=== PATIENT | male | born 1965 | race Caucasian/White ===

== ENCOUNTER 2024-08-27 22:43 | Inpatient (IN) | payer OTHER, SELFPAY ==
[2024-08-27] VITALS (10 sets, daily range): BP systolic 125–171; BP diastolic 81–111; BMI 29.6
[2024-08-27] MEDS: LOW STRENGTH ASPIRIN 324 MG PO (20:29)
[2024-08-27 20:36] LABS: Hematocrit 43.5 % (39.0-52.0); Hemoglobin 15.1 g/dL (13.0-18.0); Mean Corp Hgb Conc. 34.7 g/dL (33.0-37.0); Mean Corpuscular Volume 86.7 fL (80.0-94.0); Nucleated Red Blood Cells % 0 % (-); Platelet Count 253 10^3/uL (130-400); Red Cell Dist. Width 12.7 % (11.5-14.5)
[2024-08-27] MEDS: HEPARIN 4000 UNITS IV (20:41)
[2024-08-27] MEDS: HEPARIN 25000 UNITS/250 ML IV (20:42)
[2024-08-27] MEDS: NITROSTAT (SUBLINGUAL) 0.4 MG SL (20:44)
[2024-08-27 20:50] LABS: APTT 29.7 Sec (23.4-35.0)
[2024-08-27 20:54] LABS: ALT (SGPT) 31 U/L (0-50); AST (SGOT) 34 U/L (17-59); Albumin 4.6 g/dl (3.5-5.0); Alkaline Phosphatase 69 U/L (38-126); Blood Urea Nitrogen 23 mg/dl (9-20); Calcium 9.5 mg/dl (8.4-10.2); Carbon Dioxide 29 mmol/L (22-30); Chloride 107 mmol/L (98-107); Estimated Creatinine Clearance 68 ml/min; Glucose 110 mg/dl (70-99); Potassium 3.8 mmol/L (3.5-5.1); Sodium 142 mmol/L (135-145); Total Protein 7.2 g/dl (6.3-8.2); eGFR > 60.00
--- NOTE | 2024-08-27 20:54 | ED.GENMED ---
History of Present Illness
General
Chief Complaint: Chest Pain
Source: patient
Exam Limitations: none
Time Seen by Provider: 08/27/24 20:19
History of Present Illness
History of Present Illness:
59-year-old male left-sided chest pressure x 2 hours. Started after vigorous work outside. Describing it as a pressure. No radiation to the back no shearing no arm pain. No shortness of breath. No history of same. No known cardiac issues
Past History
Past History
ED Past Medical History: HTN and Hypercholesterolemia
Review of Systems
Review of Systems
All Other Systems: Not applicable
Constitutional: Denies fever
Respiratory: Reports no symptoms
ABD/GI: Reports no symptoms; Denies bloody stools or black stools
Phy Exam
Physical Exam
Physical Exam:
GENERAL: Alert and oriented in no apparent distress
EYE: Orbits normal.
NECK: Supple, no significant adenopathy.
ENT: Pharynx without erythema
CARDIAC: Regular rate and rhythm without any obvious murmurs.
LUNGS: Clear breath sounds,normal
ABDOMEN: Soft, without focal tenderness or distention
NEUROLOGICAL: Alert and oriented , grossly non-focal
SKIN: Warm and dry, no rash or lesion, no discoloration, skin intact.
MUSCULOSKELETAL: No edema,no deformity.Good color
PSYCH: Normal and appropriate interaction.
Scores
Heart Score for Chest Pain Patients
STEMI patient?: No
History: Highly Suspicious
ECG: Significant ST-Depression
Age: >45 - <65 years
Risk Factors: 1 or 2 Risk Factors
Troponin: >/= 3 x Normal Limit
Heart Score for Chest Pain Patients: 8
Heart Score Risk: 72.7 % MACE over next 6 weeks
Course
Orders/Labs/Results
Orders:
Orders
08/27/24 20:05
Electrocardiogram (*1) Urgent
Reason for Study: Chest Pain
Cardiac Monitoring- Treatment ONCE
EKG- Treatment ONCE
IV Insert/Care/Rem.- Treatment PRN
O2 Therapy [RESP] Urgent
Titrate/Wean O2 to maintain O2 sat greater than (%): 90
Special Instructions: Maintain sats >/=90%
Pulse Ox/spot Check [RESP] Urgent
Quantity: 1
Special Instructions: ON ROOM AIR
08/27/24 20:26
CXR Port [CR Chest Portable - 1 View] Urgent
Comment:
Reason For Exam: cp
Reason Study Needs to be Portable: Patient Unstable
08/27/24 20:27
Electrocardiogram (*1) Stat
Reason for Study: Other
Other Reason for Exam: chest pain
Cardiac Monitoring- Treatment ONCE
EKG- Treatment ONCE
IV Insert/Care/Rem.- Treatment PRN
Aspirin Chewable [Low Strength Aspirin] 324 mg PO NOW STA
08/27/24 20:28
Complete Blood Count/With Diff Urgent
Comprehensive Metabolic Panel Urgent
Troponin I Urgent
08/27/24 20:31
Heparin 4,000 units IV NOW STA
Nursing to Place Non Medication Order As Directed
Physician Order: PTT 6 hours after initial start of Heparin infusion
Above order entered?: Yes
08/27/24 20:33
PTT Urgent
Comment: Obtain baseline before beginning heparin infusion if not already collected
08/27/24 20:38
Nitroglycerin 100 mg/250 ml [Nitroglycerin Premix] 100 mg in 250 ml IV NOW
Initial dose in mcg/min, then titrate:: 5
Titrate to keep:: Chest Pain Free
Titrate by mcg/min:: 5 mcg/min, may increase by 10 mcg/min if dose > 20 mcg/min
Frequency of titrations (minutes):: every 3-5 minutes
Maximum dose in mcg/min:: 200
Begin to taper infusion when:: Remained at goal for 2hrs
Taper by mcg/min:: 5 mcg/min
Frequency of taper (minutes) if patient maintains goal:: 30
Taper to off?: Yes
If infusion off & no longer maintaining goal:: Contact Provider
08/27/24 20:42
Nitroglycerin Sublingual [Nitrostat (Sublingual)] 0.4 mg SL NOW STA
08/27/24 20:45
Heparin 79037 Units/250 ml 25,000 units in 250 ml IV PER PROTOCOL
Weight to be used for heparin protocol in kilograms (kg):: 88.2
Protocol:: Cardiac Tx/Acute Coronary
PTT Goal Range to be used:: PTT 73 to 111 seconds
Order type:: Initial
INITIAL Infusion Dose (UNITS/KG/hr) & then follow protocol:: 12 units/kg/hr
Infusion Dose in UNITS/hr & then follow protocol (UNITS/hr):: 1,000
INFUSION RATE in mL/hr & then follow protocol (mL/hr):: 10
PTT less than or equal to 64 seconds:: Increase rate by 200 units/hr (+ 2 mL/hr)
PTT 64.1 to 72.9 seconds:: Increase rate by 100 units/hr (+ 1 mL/hr)
PTT 73 to 111 seconds:: Target Range. No change in rate.
PTT 111.1 to 130.9 seconds:: Decrease rate by 100 units/hr (- 1 mL/hr)
PTT 131 to 199.9 seconds:: HOLD for 1 hr. Then decrease rate by 200 units/hr (- 2 mL/hr)
PTT greater than or equal to 200 seconds:: HOLD for 2 hrs & Notify Provider. Then decrease by 200 units/hr (-
2 mL/hr)
Lab follow-up:: Each change, PTT q6h until 2 consecutive are therapeutic. Then PTT
daily.
08/27/24 21:47
Admit Patient As Directed
Co-Sign Provider:
Level of Care: Inpatient admission
Assign to:: IVU
Physician / Group: [facility]
Diagnosis: NSTEMI
Reason for Hospitalization: NSTEMI
Expected length of stay greater than two midnights?: Yes
ELOS- Estimated Length of Stay in days: 3
I certify the patient meets the requirements for IP care: Yes
PRN Pain Medication Management As Directed
May give lesser potent ordered pain med per pt: Yes
preference::
Protocol:: Medication orders for pain may be administered in a
manner that supports deferring to patient preference
when the pt is:
- Requesting an ordered lesser potent pain medication.
Least to most potent pain medications are defined
as: acetaminophen < NSAID < tramadol < opioids
(morphine, oxycodone, hydromorphone).
- Requesting a lesser dose of the same medication IF
ORDERED.
- Requesting a less intrusive route of administration
if both routes are prescribed by the provider (PO <
IV).
08/27/24 21:52
Fentanyl Citrate/Pf [Sublimaze] 100 mcg .ROUTE .STK-MED ONE
Heparin Sodium,Porcine/Ns/Pf [Heparin 2000 Units/1000 ml] 2,000 unit in 1,000 ml .ROUTE .STK-MED
Midazolam HCl [Versed] 2 mg .ROUTE .STK-MED ONE
Nitroglycerin [Tridil] 1,500 mcg .ROUTE .STK-MED ONE
Verapamil Injectable [Isoptin/Verapamil Injection] 5 mg .ROUTE .STK-MED ONE
08/28/24 02:33
PTT Urgent
Abnormal Lab Results
08/27/24
20:28
Absolute Monos (auto) 0.7 H 10^3/uL
(0.1-0.6)
BUN 23 H mg/dl
(9-20)
Glucose 110 H mg/dl
(70-99)
Troponin I 0.647 H* ng/ml
08/27/24 20:28
08/27/24 20:28
Vital Signs
Initial and Last Documented VS:
Initial Vital Signs
Temp Pulse Resp BP Pulse Ox
98.8 F 91 18 171/109 98
08/27/24 20:09 08/27/24 20:09 08/27/24 20:09 08/27/24 20:09 08/27/24 20:09
Last Documented Vital Signs
Temp Pulse Resp BP Pulse Ox
98.8 F 82 23 154/98 92
08/27/24 20:09 08/27/24 21:21 08/27/24 21:21 08/27/24 21:21 08/27/24 21:21
MDM/Problems Addressed
Differential Diagnosis Includes:
Patient story very concerning for primary cardiac issue. Highly doubt dissection. Patient was given aspirin nitroglycerin and heparin. Initial EKG had already been sent to invasive cardiology although likely not a STEMI. Repeat EKG is improved.
Symptoms improved. Cardiology into evaluate.
*Pulse Oximetry
SaO2: 98
Oxygen Mode of Delivery: Room air
Patient hypoxic: no
*EKG
Interpreted by ED Provider?: Yes
Interpretation: abnormal
Comparison EKG: no comparison EKG present
Heart Rate: 92
Rate: normal
Rhythm: sinus
Nickerson: left axis deviation
Interval: normal interval
QRS Pattern: normal QRS
Ischemia: ST depression
*Invoice Machine Operator Interpretation
Rate: normal
Interpretation: normal
Heart Rate: 85
Rhythm: sinus
*Critical Care Note
Total Time (30-74mins, 75-104mins- exclusive of procedures): 20
ED Attending Note
-
Portions of this chart may have been created with voice recognition software.� Occasional wrong word or��sound alike� substitutions may have occurred due to the inherent limitations of voice recognition software.
Discharge Plan
Departure
Patient Disposition: Admit
Date of Disposition: 08/27/24
Time of Disposition: 20:56
Admit to: [facility]
Presentation/result/management discussed w/ accepting MD/DO: Ana
Discharge Problem:
Non-STEMI NM
Referrals:
UNKNOWN - PT DOES,NOT KNOW [Family Provider]
Interventions
Interventions:
*Risk Screen - Suicide Last Done: 08/27/24 20:09
*General Assessment Last Done: 08/27/24 20:09
*Neglect/Abuse Screening Last Done: 08/27/24 21:01
*ED- Fall Risk Assessment Last Done: 08/27/24 21:01
*ED COVID-19 Vaccine History Last Done: 08/27/24 21:01
*Nursing Disposition Last Done: 08/27/24 22:04
ED- Cardiac Assessment Last Done: 08/27/24 21:01
Discharge Date and Time
Discharge Date/Time: 08/27/24 22:04
Print Language: LAO
[2024-08-27] MEDS: NITROGLYCERIN PREMIX 250 IV (20:55)
--- NOTE | 2024-08-27 21:01 | HPS.HSE ---
Family Physician
-
Family Physician: UNKNOWN
Chief Complaint
-
Chest pain
History of Present Illness
59-year-old male with hypertension and hyperlipidemia presenting with acute onset of chest pain after working in the yard that persisted for few hours. The patient states that he began to experience midsternal chest pain, shortness of breath, and
diaphoresis. He tried to give it some time, as he thought that it could have been indigestion, but his symptoms persisted and he stated that he never felt like this before. Because of the persistence of symptoms, he told his to bring him into
the ER; he just could not get comfortable at home. The patient is a former smoker (quit 30 years ago). He states that he takes a blood pressure medication and cholesterol medication at home, and his systolic blood pressure has been 150s.
Medical History
Past Medical History
Past Medical History: Reports HTN and Hypercholesterolemia
Past Surgical History: Reports None
Social History
Tobacco: Former Smoker (Quit 30 years ago)
Alcohol: Occasional
Drug: None
Personal:
Living: With Family
Family History
Family History: CAD
Allergies / Home Medications
Allergies reflects when Allergies were last updated in [employer].
Home Medications with original date entered in [employer]
Allergy/Medication List:
NKDA
If medication reconciliation has not been performed, why?: Other (Acuity)
If Other, explain: Acuity
Review of Systems
-
History Source: Patient
A 12 point ROS was completed and negative except as noted: Yes
Cardiac: Reports See HPI and Chest Pain
Physical Exam
Vital Signs
Vital Signs
Temp Pulse Resp BP Pulse Ox
98.8 F 91 18 158/100 98
08/27/24 20:09 08/27/24 20:09 08/27/24 20:09 08/27/24 20:44 08/27/24 20:56
Physical Exam
General: No Apparent Distress
HEENT: Anicteric and Moist mucous membranes
Respiratory: Clear
Cardiac: S1/S2 and Regular Rhythm
Breast: N/A
GI: Soft and Non Tender
Rectal: Deferred by Provider
Genito-urinary: Deferred by me
Musculoskeletal: No Edema
Skin: Warm and Dry
Neuro: AO x 3
Psych: Calm
Laboratory Results
-
08/27/24 20:28
08/27/24 20:
Laboratory Results
APTT 29.7 Sec (23.4-35.0) 08/27/24 20:33
Total Bilirubin 0.6 mg/dl (0.2-1.3) 08/27/24 20:28
AST 34 U/L (17-59) 08/27/24 20:28
ALT 31 U/L (0-50) 08/27/24 20:28
Alkaline Phosphatase 69 U/L (38-126) 08/27/24 20:28
Data Reviewed
-
Medical Tests (Nuc Med, Echo, EKG etc): Image Personally Visualized and interpreted (Sinus rhythm at 92 bpm with left axis deviation and marked ST abnormality, possible inferior subendocardial injury.)
Lab Data: Labs Reviewed by me, Discussed with Physician (ER attending, Interventional Cardiology), Discussed with Patient and Discussed with Family ( at bedside)
Impression/Plan
-
IMPRESSION:
59-year-old male with hypertension and hyperlipidemia presenting with acute onset of chest pain after working in the yard that persisted for few hours. The patient states that he began to experience midsternal chest pain, shortness of breath, and
diaphoresis. He tried to give it some time, as he thought that it could have been indigestion, but his symptoms persisted and he stated that he never felt like this before. Because of the persistence of symptoms, he told his to bring him into
the ER; he just could not get comfortable at home. The patient is a former smoker (quit 30 years ago). He states that he takes a blood pressure medication and cholesterol medication at home, and his systolic blood pressure has been 150s.
PLAN:
Chest pain/ACS:
- Patient with dynamic EKG changes, presentation consistent with classic angina.
- Cardiac troponin pending.
- Heparin drip and nitroglycerin drip have been ordered in the ER.
- Has been given full-dose aspirin.
- Patient will undergo cardiac catheterization today.
- Postprocedure, admit to IVU on telemetry.
- Check lipid panel and hemoglobin A1c.
Uncontrolled hypertension:
- Nitroglycerin drip ordered.
- Will manage throughout hospitalization accordingly.
Hyperlipidemia:
- Current status unknown.
- Check lipid panel
[2024-08-27 21:03] LABS: Troponin I 0.647 ng/ml
[2024-08-27 22:26] LABS: ACT-LR - POC 168 Seconds (116-155)
[2024-08-27 22:39] LABS: ACT-LR - POC 298 Seconds (116-155)
[2024-08-27 22:59] LABS: ACT-LR - POC 306 Seconds (116-155)
--- NOTE | 2024-08-27 23:15 | ITS.CL.CATH ---
Comic Book Designer - Catheterization
Cardiac Catheterization
Procedure Report:
LEFT HEART CATH AND CORONARY INTERVENTION
Date of Procedure: August 27, 2024
Referring: Dr. Benny Perez
PROCEDURES:
1. Left heart catheterization with coronary and single-plane left ventriculography
2. Successful stenting of OM1 with a 3.5 x 15 mm [place] stent that was postdilated with a 3.5 mm noncompliant balloon
INDICATION: This is a 59-year-old gentleman with no prior cardiac history who presented to [facility] with a several hour history of substernal chest pressure. In the emergency department he was evaluated by Dr. Merlin Sellers and was referred
for coronary angiography. His troponin was mildly elevated
ACCESS: Right radial artery, 6 Vietnamese sheath
HEMODYNAMICS (mmHg):
AO (s/d, m) : 134/91
LV (s/d) : 138/10
LVEDP : 27
CORONARY FINDINGS
Dominance: Right
LEFT MAIN: Normal
LEFT ANTERIOR DESCENDING: The LAD arises normally from the left main and runs in the anterior interventricular groove. The LAD has minor irregularities over its course but no focal obstructive stenosis. A diagonal branch arises from the mid LAD
and is widely patent
CIRCUMFLEX: The circumflex is large and supplies a moderate to large caliber OM1 that has an ulcerated 95% proximal stenosis. The circumflex continues in the AV groove supplying a large posterolateral branch.
RIGHT CORONARY: The right coronary artery is a dominant vessel with minor luminal irregularities but no focal obstructive stenosis. The distal right coronary artery does have a 40% stenosis before the crux of the vessel. The PDA is a small to
medium caliber vessel that is patent. The posterolateral branch is small.
VENTRICULOGRAPHY: Left ventriculography is performed in an ROBLERO projection. The digital single-plane left ventricular ejection fraction is visually estimated at 60% with mild anterolateral hypokinesis
ANGIOPLASTY PROCEDURE DETAIL: Upon review of the diagnostic catheterization films the decision was made to proceed with primary stenting of the high-grade stenosis in OM1. Intravenous heparin was administered and a 180 mg loading dose of ticagrelor
was given. The ACT was monitored throughout the procedure. The origin of the left main was cannulated with a 6 Vietnamese XB 3.5 guiding catheter and a power turn guidewire was advanced across the stenosis in OM1 and into the distal vessel. Direct
stenting was undertaken with placement of a 3.5 x 15 mm Darshan stent that was implanted at nominal pressures then postdilated with a 3.5 mm noncompliant balloon to 14 des
SEDATION: 42 minutes of procedural sedation was utilized. An independent medical laboratory technical officer was present to assist with and help manage the patient's level of consciousness and physiologic status
RADIATION SUMMARY: Fluoro Time (min): 5.6, Dose (mGy): 707, DAP (Gy.cm2) : 58.8
CONCLUSIONS
1. Successful stenting of OM1 with a 3.5 x 15 mm [place] stent that was postdilated to 14 des with a 3.5 mm noncompliant balloon
2. Preserved LV systolic function
RECOMMENDATIONS
1. Uninterrupted dual antiplatelet therapy for 1 year
2. Guideline directed medical therapy for blood pressure and lipid control
3. Trend serial troponin
Copy to: Dr. Benny Perez
[2024-08-27] MEDS: TOPROL XL 25 MG PO (23:37)
--- NOTE | 2024-08-27 23:50 | PTCARENOTE ---
Received patient from [employer]. SR on the monitor, HR in the 70s. VSS on room air. R radial band in place. O2 95% in the right hand. No chest pain at this time. Admission assessment completed. Oriented pt to room and educated him on activity
restrictions, pt verbalizes understanding. No complaints from pt at this time, call kearns within reach.
[2024-08-28] VITALS (12 sets, daily range): BP systolic 122–150; BP diastolic 80–105; BMI 29.5
[2024-08-28 04:04] LABS: Hematocrit 40.7 % (39.0-52.0); Hemoglobin 14.1 g/dL (13.0-18.0); Mean Corp Hgb Conc. 34.6 g/dL (33.0-37.0); Mean Corpuscular Volume 85.5 fL (80.0-94.0); Platelet Count 223 10^3/uL (130-400); Red Cell Dist. Width 12.7 % (11.5-14.5)
[2024-08-28 04:24] LABS: Blood Urea Nitrogen 21 mg/dl (9-20); Calcium 8.8 mg/dl (8.4-10.2); Carbon Dioxide 23 mmol/L (22-30); Chloride 108 mmol/L (98-107); Estimated Creatinine Clearance 75 ml/min; Glucose 93 mg/dl (70-99); HDL Cholesterol 50 mg/dl; LDL Cholesterol, Calculated 133 mg/dl; Potassium 3.8 mmol/L (3.5-5.1); Sodium 140 mmol/L (135-145); Very Low Density Lipoprotein 25 mg/dl (0-30); eGFR > 60.00
[2024-08-28] MEDS: TOPROL XL 25 MG PO ×2 (09:05→19:44)
[2024-08-28] MEDS: ZESTRIL 5 MG PO (09:06)
[2024-08-28] MEDS: BRILINTA 90 MG PO ×2 (09:06→19:44)
[2024-08-28] MEDS: PROTONIX 40 MG PO (09:06)
[2024-08-28] MEDS: LOW STRENGTH ASPIRIN 81 MG PO (09:07)
[2024-08-28 10:26] LABS: Glycohemoglobin (HgbA1c) 5.7 % (4.0-5.6)
--- NOTE | 2024-08-28 11:42 | W.PN.CD ---
Today's Communication / Plan
-
- The patient underwent successful HAYLEY placement to OM1 yesterday.
- Trend cardiac troponin.
- Continue aspirin and Brilinta x 1 year.
- Echocardiogram today.
- Will change from lisinopril 5 mg daily to losartan 25 mg daily (patient was taking 50 mg daily at home); may need to increase to 50 mg daily prior to discharge.
Impression / Plan
-
59-year-old male with hypertension and hyperlipidemia presenting with acute onset of chest pain after working in the yard that persisted for few hours. The patient states that he began to experience midsternal chest pain, shortness of breath, and
diaphoresis. He tried to give it some time, as he thought that it could have been indigestion, but his symptoms persisted and he stated that he never felt like this before. Because of the persistence of symptoms, he told his to bring him into
the ER; he just could not get comfortable at home. The patient is a former smoker (quit 30 years ago). He states that he takes a blood pressure medication and cholesterol medication at home, and his systolic blood pressure has been 150s.
Chest pain/ACS/CAD:
- The patient underwent successful HAYLEY placement to OM1 yesterday.
- Trend cardiac troponin.
- Continue aspirin and Brilinta x 1 year.
- Continue atorvastatin 80 mg daily and Toprol-XL 25 mg twice daily.
- Patient was on losartan 50 mg daily at home; will resume at a lower dose of 25 mg daily for now (since Toprol-XL was added), but will likely need to go back to 50 mg daily prior to discharge.
- Echocardiogram today.
Uncontrolled hypertension:
- Mildly elevated.
- Started on Toprol-XL 25 mg twice daily.
- Will change from lisinopril 5 mg daily to losartan 25 mg daily (patient was taking 50 mg daily at home); may need to increase to 50 mg daily prior to discharge.
Hyperlipidemia:
- Total cholesterol 208, LDL 133, HDL 50, VLDL 25, triglycerides 129.
- LDL goal is less than 55; increased from atorvastatin 20 mg daily to 80 mg daily.
Prediabetes:
- Hemoglobin A1c 5.7%.
- Recommend aggressive lifestyle/dietary management.
Obesity:
- Weight loss and regular exercise recommended.
Physical Exam
Vital Signs/Labs
Vital Signs
Temp Pulse Resp BP Pulse Ox
97.9 F 79 20 150/89 98
08/28/24 07:23 08/28/24 11:15 08/28/24 07:23 08/28/24 09:05 08/28/24 07:23
08/27/24 08/28/24 08/29/24
06:59 06:59 06:59
Actual Weight 88 kg
08/28/24 03:16
08/28/24 03:16
APTT 29.7 Sec (23.4-35.0) 08/27/24 20:33
Triglycerides 129 mg/dl (10-149) 08/28/24 03:16
LDL Cholesterol, Calc 133 mg/dl 08/28/24 03:16
VLDL Cholesterol, Calc 25 mg/dl (0-30) 08/28/24 03:16
HDL Cholesterol 50 mg/dl 08/28/24 03:16
LAB Results
08/27/24
20:28
Troponin I 0.647 H*
Physical Exam
Constitutional: No acute distress and Comfortable
EENT: Anicteric
Cardiovascular: Rhythm & rate is regular, Pedal edema is absent, Systolic murmur absent and S1S2 is normal
Respiratory: Respiratory effort normal and Lungs clear to auscul.
GI: Soft
Neuro/Psych: AO x 3
Other: Skin (Warm, dry, intact)
Data Reviewed
-
Date of Service: August 28, 2024
EKG: Tracing Personally Visualized and interpreted (Telemetry: Sinus rhythm)
Echo: Ordered by me
Medical Tests (PFT, Pathology etc): Discussed with Nurse and Discussed with Patient
Labs: Labs Reviewed by me
[2024-08-28 13:28] LABS: Troponin I 5.820 ng/ml
[2024-08-28] MEDS: LOVENOX 40 MG SC (17:11)
[2024-08-28] MEDS: LIPITOR 80 MG PO (17:11)
--- NOTE | 2024-08-28 17:41 | PTCARENOTE ---
pt continues to be sr on the monitor, hr in the 60s, vss. pt offers no complaints at this time. pt denies cp/sob at this time. pt ambulating in room and tolerating well. right radial site is CDI. pt educated on plan of care and pt verbalized
understanding. call kearns within reach.
--- NOTE | 2024-08-28 21:09 | PTCARENOTE ---
Received pt @ change of shift. AAOx3, VSS-- NSR on monitor. Right radial site clean, dry, and intact. No swelling, ecchymosis present @ this time. Pt denies chest pain. Discussed plan of care. Pt verbalizes understanding. Call kearns within reach.
[2024-08-28 21:11] LABS: Troponin I 5.260 ng/ml
[2024-08-29 03:43] VITALS: BP 118/89
[2024-08-29 07:15] VITALS: BP 125/80
[2024-08-29] MEDS: TOPROL XL 25 MG PO (08:40)
[2024-08-29] MEDS: BRILINTA 90 MG PO (08:40)
[2024-08-29] MEDS: PROTONIX 40 MG PO (08:40)
[2024-08-29] MEDS: LOW STRENGTH ASPIRIN 81 MG PO (08:40)
[2024-08-29] MEDS: COZAAR 25 MG PO (08:40)
--- NOTE | 2024-08-29 10:49 | W.PN.UPDATE ---
Update Note
Progress Note Update
Patient seen and examined. Chart reviewed. Discharge meds/plans reviewed in detail with patient. Cath site is normal.
Home today
S/p MO, stent to 95% pOM, only other lesion beyond luminal dz was a 40% dRCA, peak trop 5.8, LVEF by echo 60-65%, mild AR, mild LVH, no LV wall motion abnormality seen. LVEF at cath 60% with mild anterolateral hypo
HTN
Mixed hyperlipidemia
Mild AR
Secondary prevention will be aggressively pursued as outpatient
--- NOTE | 2024-08-29 10:51 | CM ---
Reviewed chart. Met with Mr. Alvarez to review discharge plans. He states prior to admission he resides with his spouse and daughter in a two story home without any steps to enter. He states he has a full flight of steps to get to bedroom/full
bathroom. He states he has a powder room on the first floor. He states prior to admission he was independent with ambulation and adls. He states he does not have any DME in the home. He has a prescription plan with [facility] and uses [facility].. Telephone call to [facility] to check on co-pay for Ticagrelor 90 mg po bid. His co-pay would be $20.00 a month via Pharmacy and $40.00 for three month supply via mail order. Reviewed co-pay with him and he is agreeable to the
co-pay. Telephone call to [facility] on [address] and the have Ticagrelor 90mmg po bid in stock. Medical work-up in progress. The discharge plan is to return home with his spouse and daughter when medically stable.
--- NOTE | 2024-08-29 11:06 | W.DS.TRANS ---
DC Summary - Cyber Engineer
-
Discharge Instructions:
Discharge Diagnosis/Procedures coronary artery disease, myocardial infarction,
cardiac catheterization with stenting,
hypertension, dyslipidemia, pre-diabetes
Diet Low Fat,Low Cholesterol,Diabetic, Carb
Controlled,2 Gram Sodium
Activity Other activity
Additional Activity see attached form
Driving Restrictions As prior to admission
Bathing Restrictions OK to Shower
Other Services Cardiac Rehab
Instructions:
Stand-Alone Forms: DC Instructions- Cath/EP Lab
Changes to Home Medications: Yes
Discharge Medications:
DC Medications w/original date entered in [employer]
aspirin 81 mg chewable tablet 81 mg PO DAILY #90 tabs 08/29/24
atorvastatin 80 mg tablet 80 mg PO QPM #30 tabs 08/29/24
losartan 25 mg tablet 25 mg PO DAILY #30 tabs 08/29/24
metoprolol succinate 25 mg tablet,extended release 24 hr 25 mg PO BID #60 tabs 08/29/24
nitroglycerin 0.4 mg sublingual tablet (Nitrostat) 0.4 mg sublingual Q5M PRN chest pain #25 tabs 08/29/24
pantoprazole 40 mg tablet,delayed release 40 mg PO DAILY #30 tabs 08/29/24
ticagrelor 90 mg tablet (Brilinta) 90 mg PO BID #60 tabs 08/29/24
Home Medication Changes
added ASA, Brilinta, metoprolol, pantoprazole, PRN nitro
increased atorvastatin
decreased losartan
Pending Results: No
[2024-08-29 11:09] VITALS: BP 121/79
--- NOTE | 2024-08-29 12:30 | PTCARENOTE ---
d/c instructions read to pt and pt verbalized understanding. iv and tele removed. pt left via wheelchair w/ staff member. pt left w/ belongings and d/c paperwork.
== END 2024-08-29 12:31 | disposition home or self-care (01) | DRG 322 ==
LOC: IVU 22:43
PROVIDERS: Internal Medicine Interventional Cardiology; ADMITTING PHYSICIAN Internal Medicine; EMERGENCY PHYSICIAN Emergency Medicine
PROC: 027034Z Dilation of Coronary Artery, One Artery with Drug-eluting Intraluminal Device, Percutaneous Approach (ICD-10-PCS; 2024-08-27)
PROC: 4A023N7 Measurement of Cardiac Sampling and Pressure, Left Heart, Percutaneous Approach (ICD-10-PCS; 2024-08-27)
PROC: B2151ZZ Fluoroscopy of Left Heart using Low Osmolar Contrast (ICD-10-PCS; 2024-08-27)
PROC: B2111ZZ Fluoroscopy of Multiple Coronary Arteries using Low Osmolar Contrast (ICD-10-PCS; 2024-08-27)
DX: I21.4 Non-ST elevation (NSTEMI) myocardial infarction (principal); I11.9 Hypertensive heart disease without heart failure; E78.00 Pure hypercholesterolemia, unspecified; R73.03 Prediabetes; E66.9 Obesity, unspecified; Z68.29 Body mass index [BMI] 29.0-29.9, adult; I25.10 Atherosclerotic heart disease of native coronary artery without angina pectoris; Z87.891 Personal history of nicotine dependence
CPT/HCPCS: 71045; 80048; 80053; 80061; 83036; 84484; 85025; 85027; 85347; 85730; 93005; 93306; 93458; 96365; 96367; 99152; 99153; 99285; C1725; C1874; C1887; C1894; C9600; Q9967

== ENCOUNTER 2024-10-17 09:42 | Outpatient (RCR) | payer OTHER, SELFPAY | END 2024-10-17 23:59 | disposition home or self-care (01) | LOC: CRHB 09:42 | PROVIDERS: ATTENDING PHYSICIAN Internal Medicine | DX: I25.2 Old myocardial infarction (principal); Z95.5 Presence of coronary angioplasty implant and graft | CPT/HCPCS: 93798 ==